=== PATIENT | female | born 1955 | race Caucasian/White ===

== ENCOUNTER 2020-09-22 10:58 | Emergency (ER) | payer OTHER ==
[2020-09-22 12:14] LABS: BASOPHIL 1.2 % (0-2); EOSINOPHIL 0.8 % (0-7); HGB 15.5 g/dl (12.5-16.0); LYMPHOCYTE 32.2 % (15-48); MCHC 34.4 g/dL (32.0-36.0); MONOCYTE 5.5 % (0-12); MPV 10.3 fL (6.0-9.5); NEUTROPHIL 59.6 % (41-80); NRBC 0; PLT 428 K/uL (150-400); RBC 5.17 M/uL (4.20-5.40); RDW 12.6 % (11.5-14.0); WBC 9.8 K/uL (4.0-10.5)
[2020-09-22 12:31] LABS: ALBUMIN 3.9 g/dL (3.4-5.0); BILIRUBIN - TOTAL 0.9 mg/dL (0.2-1.0); BUN/CREAT RATIO (CALC) 16.4 RATIO; CREATININE 1.22 mg/dL (0.51-0.95); POTASSIUM 3.8 mmol/L (3.5-5.1); TOTAL PROTEIN 6.9 g/dL (6.4-8.2)
[2020-09-22] MEDS ORDERED: ONDANSETRON ODT4 MG PO (15:56)
[2020-09-22] MEDS ORDERED: TESSALON PERLE100 M1 PO (15:58)
[2020-09-22] MEDS ORDERED: DOXYCYCLINE HY100 MG PO (15:58)
== END 2020-09-22 17:30 | disposition home or self-care (01) ==
LOC: FER 10:58
PROVIDERS: Emergency Medicine
DX: J18.9 Pneumonia, unspecified organism (principal); E11.9 Type 2 diabetes mellitus without complications; R11.2 Nausea with vomiting, unspecified; R19.7 Diarrhea, unspecified; Z20.822 Contact with and (suspected) exposure to COVID-19
CPT/HCPCS: 36415; 80053; 82150; 83690; 84145; 85025; J0456; J0696; J7030; J7050; U0002

== ENCOUNTER 2021-03-05 10:12 | Emergency (ER) | payer OTHER ==
[~2021-03-05 10:12] MED LIST: DOXYCYCLINE HY100 MG PO; ONDANSETRON ODT4 MG PO; TESSALON PERLE100 M1 PO
[2021-03-05 12:01] LABS: EOSINOPHIL 2.5 % (0-7); HCT 42.9 % (37.0-47.0); HGB 14.3 g/dl (12.5-16.0); LYMPHOCYTE 22.9 % (15-48); MCH 29.9 pg (25.0-31.0); MCHC 33.3 g/dL (32.0-36.0); MCV 89.6 fL (78.0-100.0); MONOCYTE 5.9 % (0-12); MPV 10.3 fL (6.0-9.5); NEUTROPHIL 67.1 % (41-80); NRBC 0; PLT 374 K/uL (150-400); RBC 4.79 M/uL (4.20-5.40); RDW 13.1 % (11.5-14.0); WBC 8.3 K/uL (4.0-10.5)
[2021-03-05 12:08] LABS: ALBUMIN 3.8 g/dL (3.4-5.0); BILIRUBIN - TOTAL 0.6 mg/dL (0.2-1.0); BUN/CREAT RATIO (CALC) 21.8 RATIO; CREATININE 1.97 mg/dL (0.51-0.95); GLOBULIN (CALCULATION) 3.8 g/dL; POTASSIUM 3.5 mmol/L (3.5-5.1); TOTAL PROTEIN 7.6 g/dL (6.4-8.2)
[2021-03-05 12:59] LABS: CORONAVIRUS 2019 SARS-COV-2 NEGATIVE (NEGATIVE); INFLUENZA A NAA NEGATIVE (NEGATIVE)
[2021-03-05 15:59] LABS: BUN/CREAT RATIO (CALC) 21.2 RATIO; CREATININE 1.89 mg/dL (0.51-0.95); POTASSIUM 3.7 mmol/L (3.5-5.1)
[2021-03-05] MEDS ORDERED: ONDANSETRON ODT4 MG PO (16:44)
== END 2021-03-05 17:14 | disposition home or self-care (01) ==
LOC: FER 10:12
PROVIDERS: Internal Medicine
DX: E86.0 Dehydration (principal); R11.2 Nausea with vomiting, unspecified; N17.9 Acute kidney failure, unspecified; R91.1 Solitary pulmonary nodule; I10 Essential (primary) hypertension; Z79.82 Long term (current) use of aspirin; Z87.891 Personal history of nicotine dependence; Z20.822 Contact with and (suspected) exposure to COVID-19
CPT/HCPCS: 36415; 71045; 71250; 80048; 80053; 83690; 83880; 84145; 84443; 84484; 85025; 93005; J2405; J7030; U0002